=== PATIENT | female | born 1940 | race Caucasian/White ===

== ENCOUNTER 2020-03-18 12:49 | Outpatient (CLI) | payer MEDICARE, BC ==
[~2020-03-18 12:49] MED LIST: ESTR0.5T28 PO; MEDR2.5T7 PO
== END 2020-03-18 23:59 | disposition home or self-care (01) ==
LOC: CARD DIAG 12:49
PROVIDERS: ATTEND Internal Medicine Cardiovascular Disease
DX: I08.0 Rheumatic disorders of both mitral and aortic valves (principal); I50.9 Heart failure, unspecified
CPT/HCPCS: 93306